=== PATIENT | female | born 1955 | race Caucasian/White ===

== ENCOUNTER → 2016-08-10 | Outpatient (CLI) | payer OTHER, MEDICARE ==
--- NOTE | 2016-08-10 11:54 | RAD ---
DATE: 08/10/2016. EXAM: DIGITAL SCREEN BILAT W/CAD. HISTORY: Routine mammographic screening. COMPARISON: 04/06/2015. This study was interpreted with the benefit of Computerized Aided Detection (CAD). FINDINGS: The breast parenchyma heterogeneously dense, which could reduce sensitivity of mammography. There is a mass within the left upper outer breast that measures 2.5 x 1.8 cm. It contains a few calcifications. There is a linear dense focus slightly superior to the nipple line on the left MLO view. This is likely from superimposition. On the right, scattered vascular calcifications appear benign. There is no suspicious finding. BI-RADS CATEGORY: 0 INCOMPLETE: NEEDS ADDITIONAL IMAGING EVALUATION AND/OR PRIOR MAMMOGRAMS FOR COMPARISON.. RECOMMENDED FOLLOW-UP: ADD ADDITIONAL IMAGING. Recommend spot compression and sonography to assess a mass in the left upper outer breast. Recommend spot compression of a new linear density superior to the left nipple which is likely superimposition. PQRS compliance statement: Patient information was entered into a reminder system with a target due date 08/10/2017 for the next mammogram. Mammography is a sensitive method for finding small breast cancers, but it does not detect them all and is not a substitute for careful clinical examination. A negative mammogram does not negate a clinically suspicious finding and should not result in delay in biopsying a clinically suspicious abnormality. "Our facility is accredited by the [employer] Mammography Program."
== END | disposition home or self-care (01) ==
LOC: MAMMO 09:58
PROVIDERS: ATTEND Internal Medicine
DX: Z12.31 Encounter for screening mammogram for malignant neoplasm of breast (principal)
CPT/HCPCS: G0202; 77067

== ENCOUNTER → 2016-08-11 | Outpatient (CLI) | payer OTHER, MEDICARE ==
--- NOTE | 2016-08-11 10:52 | RAD ---
DATE: 08/11/2016 EXAM: DIGITAL DIAGNOSTIC LT, BREAST LEFT HISTORY: Suspicious screening study COMPARISON: 08/10/2016, 03/27/2015 This study was interpreted with the benefit of Computerized Aided Detection (CAD). FINDINGS: Additional views of the left breast confirm the presence of a mass in the upper outer quadrant at approximately the 2:00 location. It measures 3 cm in greatest diameter. Its margins are lobulated. There are several punctate calcifications within this nodule as well as in the adjacent breast tissues. No additional left breast mass is seen. Left breast ultrasound, 08/11/2016: A targeted ultrasound exam of the upper quadrant left breast was performed. There is a predominantly cystic appearing lesion at this level measuring 2.7 cm in greatest diameter. It contains a septation. There appears to be some isoechoic thickening of its cortez. This probably represents a complex cyst cluster. Malignancy cannot be excluded. This corresponds in location to the mammographic abnormality. Incidental note was made of a tiny smooth 6 mm hypoechoic nodule at the 1:00 location located approximately 1 cm from the nipple. This has a relatively benign appearance and may represent a complicated cyst or fibroadenoma. IMPRESSION: 1. Complex cyst cluster at the 2:00 location in the left breast as described above. Ultrasound-guided biopsy is suggested for further evaluation. 2. Small benign-appearing nodule at the 1:00 location in the left breast seen only with ultrasound. Sonographic follow-up is suggested to establish stability. Note: The patient was notified of the recommendation for biopsy at the time of the exam. BI-RADS CATEGORY: 4 SUSPICIOUS ABNORMALITY- BIOPSY SHOULD BE CONSIDERED RECOMMENDED FOLLOW-UP: BIO BIOPSY RECOMMENDED PQRS compliance statement: Patient information was entered into a reminder system with a target due date for the next mammogram. Mammography is a sensitive method for finding small breast cancers, but it does not detect them all and is not a substitute for careful clinical examination. A negative mammogram does not negate a clinically suspicious finding and should not result in delay in biopsying a clinically suspicious abnormality. "Our facility is accredited by the [employer] Mammography [employer]."
== END | disposition home or self-care (01) ==
LOC: MAMMO 09:41
PROVIDERS: ATTEND Internal Medicine
DX: N63 Unspecified lump in breast (principal)
CPT/HCPCS: 76641; G0206; 77065

== ENCOUNTER → 2017-04-04 | Outpatient (CLI) | payer OTHER ==
--- NOTE | 2017-04-04 13:50 | RAD ---
DATE: 04/04/2017 EXAM: DIGITAL DIAGNOSTIC LT HISTORY: 6 month follow-up COMPARISON: Screening examination 08/10/2016. The history of left breast surgery for removal of a mass in September of this year has been provided This study was interpreted with the benefit of Computerized Aided Detection (CAD). FINDINGS: Breast Density: SCATTERED The breast parenchyma shows scattered fibroglandular densities. Breast parenchyma level B. Apart from removal of the mass in the upper outer aspect of the breast there has not been a significant change. A follow-up bilateral study, screening, is suggested in July, IMPRESSION: Benign findings left breast. Follow-up bilateral screening mammography suggested in July, BI-RADS CATEGORY: 2 BENIGN FINDING(S) RECOMMENDED FOLLOW-UP: 6M 6 MONTH FOLLOW-UP PQRS compliance statement: Patient information was entered into a reminder system with a target due date July for the next mammogram. Mammography is a sensitive method for finding small breast cancers, but it does not detect them all and is not a substitute for careful clinical examination. A negative mammogram does not negate a clinically suspicious finding and should not result in delay in biopsying a clinically suspicious abnormality. "Our facility is accredited by the [employer] Mammography Program."
== END | disposition home or self-care (01) ==
LOC: MAMMO 13:18
PROVIDERS: ATTEND Internal Medicine
DX: R92.8 Other abnormal and inconclusive findings on diagnostic imaging of breast (principal)
CPT/HCPCS: G0206; 77065

== ENCOUNTER → 2017-11-20 | Outpatient (CLI) | payer BC, OTHER | END | disposition home or self-care (01) | LOC: MAMMO 09:19 | DX: Z12.31 Encounter for screening mammogram for malignant neoplasm of breast (principal) | CPT/HCPCS: 77067 ==

== ENCOUNTER → 2018-03-07 | Outpatient (CLI) | payer BC, OTHER ==
--- NOTE | 2018-03-07 16:09 | KCIC ---
EXAM: Pelvic sonogram. HISTORY: Postmenopausal bleeding. TECHNIQUE: Transabdominal and transvaginal sonographic imaging of the pelvis was performed. COMPARISON: None. FINDINGS: The uterus measures 8.9 x 5.2 x 4.6 cm. The endometrial stripe measures 3.6 mm in thickness. The ovaries are normal in size and demonstrate normal blood flow. There is a 1.8 cm right ovarian cyst. There are nabothian cysts within the cervix. There is no pelvic free fluid. IMPRESSION: 1. 1.8 cm right ovarian cyst. Given the postmenopausal status the patient, sonographic follow-up can be performed to confirm stability. 2. Normal endometrial thickness for the postmenopausal status the patient. 3. Nabothian cysts within the cervix. Electronically signed by: Sharon Sun MD (03/07/2018 4:06 PM) [facility]
== END | disposition home or self-care (01) ==
LOC: KCIC US 15:00
PROVIDERS: ATTEND Internal Medicine
DX: N83.291 Other ovarian cyst, right side (principal); N88.8 Other specified noninflammatory disorders of cervix uteri
CPT/HCPCS: 76830; 76856

== ENCOUNTER 2018-03-21 09:19 | Day surgery (SDC) | payer BC, OTHER ==
[~2018-03-21] VITALS: Ht 160 cm; Wt 99.8 kg
[~2018-03-21 09:19] MED LIST: ALLO100T PO; ALPR0.5T PO; AMLO2.5T3 PO; ATOR40TA59 PO; CELE200C PO; CYCL5TAB PO; HYDR-963 PO; HYDROmorphone 2 MG/ML VIAL IV PRN; IV RINGERS,LACTATED 1000ML 1,000 ML IV SCH; LIDOCAINE 1% PF 2 ML VIAL. ID PRN; MORPHINE SULFATE 2 MG/ML VIAL. IV PRN; ONDANSETRON PF 4 MG/2 ML VIAL. IV PRN; PANT20TA2 PO; POTA10TA12 PO; PROCHLORPERAZINE 10 MG/2 ML VIAL. IV PRN; SERT50TA PO; TOPI50TA8 PO; TRIA1TAB3 PO; fentaNYL PF VIAL 100 MCG/2 ML VIAL IV PRN
[2018-03-21] MEDS ORDERED: miSOPROStol 200MCG TAB 200 MCG TABLET ONE (09:47)
[2018-03-21] MEDS ORDERED: OXYTOCIN 10 UNIT/ML VIAL. ONE (09:48)
[2018-03-21 09:50] LABS: BASO % 1 % (0-3); EOS # 0.1 x10^3/uL (0.0-0.7); EOS % 2 % (0-3); HEMATOCRIT 40.6 % (36.0-47.0); HEMOGLOBIN 13.9 g/dL (12.0-15.5); LYMPH # 2.1 x10^3/uL (1.0-4.8); LYMPH % 33 % (24-48); MEAN CORPUSCULAR HEMOGLOBIN 29 pg (25-35); MEAN CORPUSCULAR HGB CONC 34 g/dL (31-37); MEAN CORPUSCULAR VOLUME 85 fL (79-100); MONO # 0.5 x10^3/uL (0.0-1.1); MONO % 8 % (0-9); NEUT # 3.5 x10^3uL (1.8-7.7); NEUT % 56 % (31-73); PLATELET COUNT 269 x10^3/uL (140-400); RED BLOOD COUNT 4.77 x10^6/uL (3.50-5.40); WHITE BLOOD COUNT 6.3 x10^3/uL (4.0-11.0)
[2018-03-21] MEDS ORDERED: PROPOFOL 20 ML IV ONE (10:27)
[2018-03-21] MEDS ORDERED: ONDANSETRON PF 4 MG/2 ML VIAL. ONE (10:27)
[2018-03-21] MEDS ORDERED: DEXAMETHASONE SOD PHOS 20 MG/5 ML VIAL. ONE (10:27)
[2018-03-21] MEDS ORDERED: ROCURONIUM 100 MG/10 ML VIAL. ONE (10:42)
[2018-03-21] MEDS ORDERED: fentaNYL PF VIAL 100 MCG/2 ML VIAL ONE (10:42)
[2018-03-21] MEDS ORDERED: MIDAZOLAM HCL/PF 2 MG/2 ML VIAL. ONE (10:43)
[2018-03-21] MEDS ORDERED: PHENYLEPHRINE in 0.9% NACL PF 1 MG/10 ML SYRINGE. IV ONE (11:10)
[2018-03-21] MEDS ORDERED: ePHEDrine PF IN SALINE 50 MG/5 ML DISP.SYRIN IV ONE (11:20)
--- NOTE | 2018-03-21 11:29 | PDOC ---
GENERAL General: 62 yrs old female came in for Postmenopausal bleeding. VITAL SIGNS Vital Signs: Vital Signs Date Time Temp Pulse Resp B/P (MAP) Pulse Ox O2 Delivery O2 Flow Rate FiO2 03/21/18 09:37 97.7 68 20 97 97.7 03/21/18 09:37 140/82 Room Air ALLERGIES Allergies: Allergies Coded Allergies Type Severity Reaction Last Updated Verified No Known Drug Allergies 03/21/18 No MEDS Medications: Current Medications Medications (Trade) Dose Ordered Sig/Mac Start Time Stop Time Status Last Admin Dose Admin Cefazolin Sodium 50 ml @ 100 mls/hr 1X ONCE 03/21/18 06:00 03/21/18 06:29 DC 03/21/18 10:00 100 MLS/HR Dexamethasone Sodium Phosphate (Decadron) 20 mg STK-MED ONCE 03/21/18 10:27 03/21/18 10:29 DC Ephedrine Sulfate (ePHEDrine PF IN SALINE SYRINGE) 50 mg STK-MED ONCE 03/21/18 11:20 03/21/18 11:22 DC Fentanyl Citrate (Fentanyl 2ml Vial) 100 mcg STK-MED ONCE 03/21/18 10:42 03/21/18 10:44 DC Hydromorphone HCl (Dilaudid) 0.5 mg PRN Q10MIN PRN 03/21/18 07:00 03/22/18 06:59 Lidocaine HCl (Xylocaine-Mpf 1% 2ml Vial) 2 ml PRN 1X PRN 03/21/18 07:00 03/22/18 06:59 Midazolam HCl (Versed) 2 mg STK-MED ONCE 03/21/18 10:43 03/21/18 10:44 DC Misoprostol (Cytotec 200mcg Tab) 200 mcg STK-MED ONCE 03/21/18 09:47 03/21/18 10:49 DC Morphine Sulfate (Morphine Sulfate) 1 mg PRN Q10MIN PRN 03/21/18 07:00 03/22/18 06:59 Ondansetron HCl (Zofran) 4 mg STK-MED ONCE 03/21/18 10:27 03/21/18 10:29 DC Oxytocin (Pitocin) 10 unit STK-MED ONCE 03/21/18 09:48 03/21/18 10:49 DC Phenylephrine HCl (PHENYLEPHRINE in 0.9% NACL PF) 1 mg STK-MED ONCE 03/21/18 11:10 03/21/18 11:11 DC Prochlorperazine Edisylate (Compazine) 5 mg PACU PRN PRN 03/21/18 07:00 03/22/18 06:59 Propofol 20 ml @ As Directed STK-MED ONCE 03/21/18 10:27 03/21/18 10:29 DC Ringer's Solution 1,000 ml @ 30 mls/hr Q24H 03/21/18 07:00 03/21/18 18:59 03/21/18 07:00 30 MLS/HR Rocuronium [place] (Zemuron) 100 mg STK-MED ONCE 03/21/18 10:42 03/21/18 10:43 DC LAB Lab: Laboratory Tests Test 03/21/18 09:40 White Blood Count 6.3 x10^3/uL (4.0-11.0) Red Blood Count 4.77 x10^6/uL (3.50-5.40) Hemoglobin 13.9 g/dL (12.0-15.5) Hematocrit 40.6 % (36.0-47.0) Mean Corpuscular Volume 85 fL (79-100) Mean Corpuscular Hemoglobin 29 pg (25-35) Mean Corpuscular Hemoglobin Concent 34 g/dL (31-37) Red Cell Distribution Width 15.0 % (11.5-14.5) Platelet Count 269 x10^3/uL (140-400) Neutrophils (%) (Auto) 56 % (31-73) Lymphocytes (%) (Auto) 33 % (24-48) Monocytes (%) (Auto) 8 % (0-9) Eosinophils (%) (Auto) 2 % (0-3) Basophils (%) (Auto) 1 % (0-3) Neutrophils # (Auto) 3.5 x10^3uL (1.8-7.7) Lymphocytes # (Auto) 2.1 x10^3/uL (1.0-4.8) Monocytes # (Auto) 0.5 x10^3/uL (0.0-1.1) Eosinophils # (Auto) 0.1 x10^3/uL (0.0-0.7) Basophils # (Auto) 0.0 x10^3/uL (0.0-0.2) ASSESSMENT & PLAN A&P Under GA Diagnostic D&C done. EBL 5cc. Will see her in office in 2 weeks. DENEEN KAN MD Mar 21, 2018 11:29
[2018-03-21 12:30] VITALS: BP 110/68
--- NOTE | 2018-03-21 12:44 | OP ---
DATE OF SURGERY: 03/21/2018 PREOPERATIVE DIAGNOSIS: Postmenopausal bleeding. POSTOPERATIVE DIAGNOSIS: Postmenopausal bleeding. OPERATION PERFORMED: Diagnostic D and C. DESCRIPTION OF PROCEDURE: The patient was taken to the Operating Room. Under general anesthesia, she was placed in a dorsal lithotomy position. Perineum was prepped and draped in the usual manner. A weighted speculum was inserted in the posterior vaginal wall. Anterior lip of the cervix held with a tenaculum and uterine sound was used to measure the length of the uterine cavity, which appeared to be about 8 cm. The cervix was dilated first and medium sized curette was used to curet the endometrial cavity. All the curettings obtained were subjected for pathological examination. At the end of the curettage, speculum, tenaculum was removed. The patient was sent to the Recovery Room in good condition. No complications encountered at time of the procedure. Estimated blood loss was about 5 mL. Postoperative condition was stable. She will be followed in the office in 2 weeks for further care and treatment. DENEEN KAN MD DR: NBA/natalia JOB#: [id number] / [id number] FRANCIA Gillis MD
--- NOTE | 2018-03-22 14:11 | PATHOLOGY ---
[facility] Accession Number: [id number] . 01 Material submitted: . UTERINE CURETTINGS . 01 Clinician provided ICD-10: N95.0 . 01 Clinical history: . Postmenopausal bleeding . 02 Diagnosis: Uterine curettings: - Inactive/atrophic endometrium. (JPM:[place]; 03/22/2018) QMS/03/22/2018 . 02 Comment: Sections of the uterine curettings reveal blood and mucin containing segments of inactive/atrophic endometrium. There are also a few segments of lower uterine segment and squamous mucosa. There is no evidence of hyperplasia or malignancy. (JPM:[place]; 03/22/2018) . 02 Electronically signed: . Marshal Springer MD, Pathologist NPI- [id number] . 01 Gross description: . Received in formalin labeled "Adrianne Lopez, uterine curettings," is blood-tinged mucoid material containing small fragments of sidhu membranous tissue, measuring 2.7 x 1.5 x 0.2 cm in aggregate dimensions. The specimen is filtered and submitted entirely in cassette A1. (TSD; 03/21/2018) TOB/TOB . 02 Pathologist provided ICD-10: N85.8, N95.0 . 02 CPT . 801129 Specimen Comment: A courtesy copy of this report has been sent to Specimen Comment: [phone], . Specimen Comment: Report sent to / DR MOLINA Specimen Comment: A duplicate report has been generated due to demographic updates. Performed at: [address], [place], [place] [id number] MD Isauro High MD Phone: [phone] Performed at: 02 [facility] [address] [place], [place] [id number] MD Marshal Springer MD Phone: [phone]
== END 2018-03-21 12:30 | disposition home or self-care (01) ==
LOC: SURG 09:19
PROVIDERS: ATTEND Obstetrics & Gynecology
DX: N85.8 Other specified noninflammatory disorders of uterus (principal); I10 Essential (primary) hypertension; K21.9 Gastro-esophageal reflux disease without esophagitis; E66.9 Obesity, unspecified; M19.90 Unspecified osteoarthritis, unspecified site; F32.9 Major depressive disorder, single episode, unspecified; F41.9 Anxiety disorder, unspecified; Z79.899 Other long term (current) drug therapy; Z98.890 Other specified postprocedural states; E78.00 Pure hypercholesterolemia, unspecified; Z98.51 Tubal ligation status
CPT/HCPCS: 36415; 58120; 85025; A7015; J0690; J1100; J2250; J2370; J2405; J2704; J3010; J7120; 88305; J2590

== ENCOUNTER → 2018-04-17 | Outpatient (CLI) | payer BC, OTHER ==
[2018-03-21 12:30] VITALS: BP 110/68
[~2018-04-17] MED LIST changes: -HYDROmorphone 2 MG/ML VIAL IV PRN; -IV RINGERS,LACTATED 1000ML 1,000 ML IV SCH; -LIDOCAINE 1% PF 2 ML VIAL. ID PRN; -MORPHINE SULFATE 2 MG/ML VIAL. IV PRN; -ONDANSETRON PF 4 MG/2 ML VIAL. IV PRN; -PROCHLORPERAZINE 10 MG/2 ML VIAL. IV PRN; +TRAM-48 PO; -fentaNYL PF VIAL 100 MCG/2 ML VIAL IV PRN
--- NOTE | 2018-04-17 07:55 | RAD ---
Complete abdominal ultrasound 04/17/2018 INDICATION: Abnormal liver function tests. COMPARISON STUDY: None available. Discussion: Ultrasound evaluation of the abdomen was performed. Static images are submitted to PACS. The pancreas is not visualized. The aorta and IVC are nonvisualized. The liver is partially visualized with significant portions of the liver obscured. The liver is diffusely echogenic suggesting hepatic steatosis. The gallbladder is visualized without gross abnormality. Common bile duct is nonvisualized. The right kidney is normal in size measuring 12 cm in length. No evidence of hydronephrosis is identified. No evidence of nephrolithiasis is seen. The spleen is mildly enlarged measuring 13 cm longitudinally. Left kidney is normal in appearance measuring 12.1 cm in length. IMPRESSION: 1. Limited study 2. Probable hepatic steatosis 3. Mild splenomegaly Electronically signed by: Conrad Acuna MD (04/17/2018 7:52 AM) [facility]
== END | disposition home or self-care (01) ==
LOC: US 06:38
PROVIDERS: ATTEND Internal Medicine Gastroenterology
DX: R16.1 Splenomegaly, not elsewhere classified (principal)
CPT/HCPCS: 76700

== ENCOUNTER 2018-04-18 07:06 | Inpatient (IN) | payer BC, OTHER ==
[~2018-04-18] VITALS: Ht 162.6 cm; Wt 100.7 kg
[2018-04-18] VITALS (7 sets, daily range): BP systolic 91–108; BP diastolic 49–59
[~2018-04-18 07:06] MED LIST changes: +HYDROmorphone 2 MG/ML VIAL IV PRN; +IV RINGERS,LACTATED 1000ML 1,000 ML IV SCH; +LIDOCAINE 1% PF 2 ML VIAL. ID PRN; +MORPHINE SULFATE 2 MG/ML VIAL. IV PRN; +ONDANSETRON PF 4 MG/2 ML VIAL. IV PRN; +PROCHLORPERAZINE 10 MG/2 ML VIAL. IV PRN; -TRAM-48 PO; +fentaNYL PF VIAL 100 MCG/2 ML VIAL IV PRN
[2018-04-18] MEDS ORDERED: ROCURONIUM 50 MG/5 ML VIAL. ONE ×2 (07:55→10:02)
[2018-04-18] MEDS ORDERED: fentaNYL PF VIAL 250 MCG/5 ML VIAL ONE (07:55)
[2018-04-18] MEDS ORDERED: MIDAZOLAM HCL/PF 2 MG/2 ML VIAL. ONE (07:55)
[2018-04-18] MEDS ORDERED: DEXAMETHASONE SOD PHOS 20 MG/5 ML VIAL. ONE (07:57)
[2018-04-18] MEDS ORDERED: DESFLURANE > 120 MINUTES IH ONE (07:57)
[2018-04-18] MEDS ORDERED: PROPOFOL 20 ML IV ONE (07:57)
[2018-04-18] MEDS ORDERED: ONDANSETRON PF 4 MG/2 ML VIAL. ONE (07:57)
--- NOTE | 2018-04-18 07:57 | EKG ---
[facility] [address] [place] [address] Test Date: 2018-04-18 Test Time: 07:04:43 Pat Name: JAYLEN HUGHES Department: Room: [place] [address] Gender: F Talend Etl Developer: : [id number] Requested By: DENEEN KAN Order Number: [id number] Reading MD: Jesse Turcios Measurements Intervals [place] Rate: 63 P: 28 WI: 166 QRS: -11 QRSD: 102 T: 13 QT: 430 QTc: 443 Interpretive Statements SINUS RHYTHM LEFTWARD AXIS T ABNORMALITY IN ANTERIOR LEADS ABNORMAL ECG Electronically Signed On 04-20-2018 10:29:45 CDT by Jesse Turcios
--- NOTE | 2018-04-18 08:56 | RAD ---
CHEST PA LATERAL History: PRE OP , PT HAVING HYSTERECTOMY. Comparison: February 25, 2008 Findings: 2 views of the chest are submitted. There is no infiltrate, pneumothorax, or effusion. The cardiac silhouette is within normal limits in size. The trachea is in the midline. No acute osseous abnormality is identified. Impression: 1. There is no radiographic evidence of acute cardiopulmonary disease. Electronically signed by: Aniket Cleveland MD (04/18/2018 8:54 AM) [facility]
[2018-04-18] MEDS ORDERED: GELATIN SPONGE SIZE 100. ONE (09:35)
[2018-04-18] MEDS ORDERED: GELATIN SPONGE SIZE 12-7MM SPONGE. ONE (09:36)
[2018-04-18] MEDS ORDERED: GELATIN MUCOSAL POWDER. ONE (09:37)
[2018-04-18] MEDS ORDERED: GLYCOPYRROLATE 1 MG/5 ML VIAL. ONE (10:10)
[2018-04-18] MEDS ORDERED: NEOSTIGMINE METHYLSULFATE 5 MG/5 ML SYRINGE. ONE (10:10)
[2018-04-18] MEDS ORDERED: LIDOCAINE 2% PF Vial for OR 5 ML VIAL. ONE (10:54)
--- NOTE | 2018-04-18 11:05 | PDOC ---
GENERAL General: 62 yrs old lady admitted for Abdominal Hysterectomy and Bilateral Salpingo Oophorectomy. for Post Menopausal Bleeding. VITAL SIGNS Vital Signs: Vital Signs Date Time Temp Pulse Resp B/P (MAP) Pulse Ox O2 Delivery O2 Flow Rate FiO2 04/18/18 07:36 97.7 69 18 126/63 96 Room Air 97.7 ALLERGIES Allergies: Allergies Coded Allergies Type Severity Reaction Last Updated Verified No Known Drug Allergies 04/16/18 No MEDS Medications: Current Medications Medications (Trade) Dose Ordered Sig/Mac Start Time Stop Time Status Last Admin Dose Admin Cefazolin Sodium/ Dextrose 50 ml @ 100 mls/hr 1X PREOP PRN 04/18/18 06:00 04/18/18 18:00 04/18/18 09:00 100 MLS/HR Desflurane (Suprane) 90 ml STK-MED ONCE 04/18/18 07:57 04/18/18 07:58 DC Dexamethasone Sodium Phosphate (Decadron) 20 mg STK-MED ONCE 04/18/18 07:57 04/18/18 07:58 DC Fentanyl Citrate (Fentanyl 2ml Vial) 50 mcg PRN Q5MIN PRN 04/18/18 07:00 04/19/18 06:59 Fentanyl Citrate (Fentanyl 5ml Vial) 250 mcg STK-MED ONCE 04/18/18 07:55 04/18/18 07:56 DC Gelatin (Gelfoam Size 12-7mm) 1 each STK-MED ONCE 04/18/18 09:36 04/18/18 10:36 DC 04/18/18 10:42 1 EACH Gelatin (Gelfoam Size 100) 1 each STK-MED ONCE 04/18/18 09:35 04/18/18 10:35 DC Gelatin (Gelfoam Powder) 1 gm STK-MED ONCE 04/18/18 09:37 04/18/18 10:38 DC Glycopyrrolate (Robinul) 1 mg STK-MED ONCE 04/18/18 10:10 04/18/18 10:11 DC Hydromorphone HCl (Dilaudid) 0.5 mg PRN Q10MIN PRN 04/18/18 07:00 04/19/18 06:59 Lidocaine HCl (Lidocaine Pf 2% Vial) 5 ml STK-MED ONCE 04/18/18 10:54 04/18/18 10:55 DC Lidocaine HCl (Xylocaine-Mpf 1% 2ml Vial) 2 ml PRN 1X PRN 04/18/18 07:00 04/19/18 06:59 Midazolam HCl (Versed) 2 mg STK-MED ONCE 04/18/18 07:55 04/18/18 07:56 DC Morphine Sulfate (Morphine Sulfate) 1 mg PRN Q10MIN PRN 04/18/18 07:00 04/19/18 06:59 Neostigmine Methylsulfate (Neostigmine Methylsulfate) 5 mg STK-MED ONCE 04/18/18 10:10 04/18/18 10:11 DC Ondansetron HCl (Zofran) 4 mg STK-MED ONCE 04/18/18 07:57 04/18/18 07:58 DC Prochlorperazine Edisylate (Compazine) 5 mg PACU PRN PRN 04/18/18 07:00 04/19/18 06:59 Propofol 20 ml @ As Directed STK-MED ONCE 04/18/18 07:57 04/18/18 07:58 DC Ringer's Solution 1,000 ml @ 30 mls/hr Q24H 04/18/18 07:00 04/18/18 18:59 Rocuronium [place] (Zemuron) 50 mg STK-MED ONCE 04/18/18 10:02 04/18/18 10:03 DC ASSESSMENT & PLAN A&P Under GA Abdominal Hysterectomy and Bilateral Salpingo Oophorectomy done. EBL 300 cc. DENEEN KAN MD Apr 18, 2018 11:05
[2018-04-18] MEDS ORDERED: fentaNYL PF VIAL 100 MCG/2 ML VIAL ONE ×2 (11:33→12:16)
[2018-04-18] MEDS ORDERED: PROCHLORPERAZINE 10 MG/2 ML VIAL. ONE (11:33)
--- NOTE | 2018-04-18 11:57 | OP ---
DATE OF SURGERY: 04/18/2018 PREOPERATIVE DIAGNOSES: Post-menopausal bleeding, pelvic pain, hypertension. POSTOPERATIVE DIAGNOSES: Post-menopausal bleeding, pelvic pain, hypertension. OPERATION PERFORMED: Abdominal hysterectomy, bilateral salpingo-oophorectomy. DESCRIPTION OF PROCEDURE: The patient was taken to the operating room. Under general anesthesia, she was placed in a dorsal supine position. Jenkins catheter introduced in the bladder for continuous bladder drainage. Lower abdomen was prepped and draped in the usual manner. Pfannenstiel incision was made. Abdomen opened in layers. Visualization of pelvic structures revealed slightly enlarged uterus. Both the tubes and ovaries appeared normal with the previous tubal ligation scars and the round ligament on either side was clamped, ligated, cut and sutured with #1 chromic catgut sutures. The infundibulopelvic ligament on either side was clamped, ligated, cut and sutured with #1 chromic catgut sutures and the bladder flap peritoneum was dissected. Bladder was pushed way down the lower segment of the uterus. Uterine vessels on either side was clamped, ligated, cut and sutured with #1 chromic catgut sutures. After the complete reflection of bladder flap peritoneum, the uterosacral cardinal ligaments on either side was clamped, ligated, cut and sutured with #1 chromic catgut sutures. A stab wound incision was made below the cervix posteriorly and the incision was extended all around below the cervix and thus the uterus with the cervix, both the tubes and ovaries were removed. The vaginal cuff, anterior and posterior cuffs were brought in the midline and sutured together using 0 chromic catgut sutures. The angle of the vagina was anchored to the uterosacral cardinal ligaments on either side using [id number] 0 chromic catgut sutures and then the cuff was closed with intermittent 0 chromic catgut sutures. After this, there was no active bleeding or oozing. A small piece of Gelfoam sponge was placed below the bladder flap peritoneum. Reperitonealization was done with continuous 0 chromic catgut sutures and after this, the abdomen was closed in layers using continuous 0 chromic catgut sutures for the peritoneum, the fascia and 3-0 plain continuous sutures applied for subcutaneous tissue and 3-0 Vicryl subcutaneous sutures were placed, a pressure dressing was given. The patient was sent to the recovery room in good condition. No complications encountered at the time of the procedure. Estimated blood loss about 300 mL. Postoperative condition was stable. DENEEN KAN MD DR: NBA/natalia JOB#: [id number] / [id number] Meeta Harrington MD
[2018-04-18] MEDS: fentaNYL PF VIAL 100 MCG/2 ML VIAL IV PRN ×3 (12:13→12:37)
[2018-04-18] MEDS ORDERED: KETOROLAC 30 MG/ML VIAL. IV ONE (12:45)
[2018-04-18] MEDS ORDERED: MORPHINE SULFATE 2 MG/ML VIAL. ONE (12:51)
[2018-04-18] MEDS ORDERED: OPIUM/BELLADONNA 30/16.2MG SUPP.RECT. PR PRN (14:00)
[2018-04-18] MEDS ORDERED: ONDANSETRON PF 4 MG/2 ML VIAL. IV PRN (14:15)
[2018-04-18] MEDS: MORPHINE SULFATE 10 MG/ML VIAL. IV PRN ×2 (15:18→23:59)
[2018-04-18] MEDS: KETOROLAC 30 MG/ML VIAL. IV PRN (19:49)
[2018-04-18] MEDS: IV DEXTROSE 5%-LACT RINGERS 1,000 ML IV SCH (20:41)
[2018-04-19] MEDS: IV DEXTROSE 5%-LACT RINGERS 1,000 ML IV SCH (04:11)
[2018-04-19] MEDS: KETOROLAC 30 MG/ML VIAL. IV PRN ×2 (05:57→12:12)
[2018-04-19 06:47] VITALS: BP 83/53
--- NOTE | 2018-04-19 08:30 | PDOC ---
GENERAL General: Abdomen soft Explained to pt about surgery. VITAL SIGNS Vital Signs: Vital Signs Date Time Temp Pulse Resp B/P (MAP) Pulse Ox O2 Delivery O2 Flow Rate FiO2 04/19/18 06:47 97.9 59 18 83/53 (63) 97.9 04/18/18 23:11 96 Nasal Cannula 2.5 I & O I & O Intake and Output 04/19/18 07:00 Intake Total 3490 ml Output Total 1400 ml Balance 2090 ml Intake Oral 200 ml IV Total 2050 ml Other 1240 ml Output Urine Total 1050 ml Estimated Blood Loss 350 ml ALLERGIES Allergies: Allergies Coded Allergies Type Severity Reaction Last Updated Verified No Known Drug Allergies 04/16/18 No MEDS Medications: Current Medications Medications (Trade) Dose Ordered Sig/Mac Start Time Stop Time Status Last Admin Dose Admin Belladonna Alkaloids/Opium (B & O) 1 supp PRN Q12HR PRN 04/18/18 14:00 04/18/18 14:43 1 SUPP Cefazolin Sodium/ Dextrose 50 ml @ 100 mls/hr 1X PREOP PRN 04/18/18 06:00 04/18/18 18:00 DC 04/18/18 09:00 100 MLS/HR Desflurane (Suprane) 90 ml STK-MED ONCE 04/18/18 07:57 04/18/18 07:58 DC Dexamethasone Sodium Phosphate (Decadron) 20 mg STK-MED ONCE 04/18/18 07:57 04/18/18 07:58 DC Dextrose/Lactated Ringer's 1,000 ml @ 100 mls/hr Q10H 04/18/18 14:30 04/19/18 04:11 100 MLS/HR Fentanyl Citrate (Fentanyl 2ml Vial) 100 mcg STK-MED ONCE 04/18/18 12:16 04/18/18 12:17 DC Fentanyl Citrate (Fentanyl 5ml Vial) 250 mcg STK-MED ONCE 04/18/18 07:55 04/18/18 07:56 DC Gelatin (Gelfoam Size 12-7mm) 1 each STK-MED ONCE 04/18/18 09:36 04/18/18 10:36 DC 04/18/18 10:42 1 EACH Gelatin (Gelfoam Size 100) 1 each STK-MED ONCE 04/18/18 09:35 04/18/18 10:35 DC Gelatin (Gelfoam Powder) 1 gm STK-MED ONCE 04/18/18 09:37 04/18/18 10:38 DC Glycopyrrolate (Robinul) 1 mg STK-MED ONCE 04/18/18 10:10 04/18/18 10:11 DC Hydromorphone HCl (Dilaudid) 0.5 mg PRN Q10MIN PRN 04/18/18 07:00 04/19/18 06:59 DC Ketorolac Tromethamine (Toradol 30mg Vial) 30 mg PRN Q6HRS PRN 04/18/18 19:30 04/23/18 19:29 04/19/18 05:57 30 MG Lidocaine HCl (Lidocaine Pf 2% Vial) 5 ml STK-MED ONCE 04/18/18 10:54 04/18/18 10:55 DC Lidocaine HCl (Xylocaine-Mpf 1% 2ml Vial) 2 ml PRN 1X PRN 04/18/18 07:00 04/19/18 06:59 DC Midazolam HCl (Versed) 2 mg STK-MED ONCE 04/18/18 07:55 04/18/18 07:56 DC Morphine Sulfate (Morphine Sulfate) 10 mg PRN Q4HRS PRN 04/18/18 14:00 04/18/18 23:59 10 MG Neostigmine Methylsulfate (Neostigmine Methylsulfate) 5 mg STK-MED ONCE 04/18/18 10:10 04/18/18 10:11 DC Ondansetron HCl (Zofran) 4 mg PRN Q6HRS PRN 04/18/18 14:15 Prochlorperazine Edisylate (Compazine) 10 mg STK-MED ONCE 04/18/18 11:33 04/18/18 11:34 DC Propofol 20 ml @ As Directed STK-MED ONCE 04/18/18 07:57 04/18/18 07:58 DC Ringer's Solution 1,000 ml @ 30 mls/hr Q24H 04/18/18 07:00 04/18/18 18:59 DC 04/18/18 08:15 30 MLS/HR Rocuronium [place] (Zemuron) 50 mg STK-MED ONCE 04/18/18 10:02 04/18/18 10:03 DC ASSESSMENT & PLAN A&P Vital signs stable Abdomen soft. Not much vaginal bleeding. DENEEN KAN MD Apr 19, 2018 08:30
[2018-04-19 11:15] VITALS: BP 99/54
[2018-04-19] MEDS ORDERED: traMADol 50 MG TABLET PO PRN (12:45)
[2018-04-19 16:20] VITALS: BP 98/57
[2018-04-19 20:24] VITALS: BP 96/57
[2018-04-19] MEDS ORDERED: KETOROLAC 60 MG/2 ML INJ. IM PRN (20:30)
[2018-04-19] MEDS: IBUPROFEN 400 MG TABLET. PO PRN (20:49)
[2018-04-19] MEDS: traMADol 50 MG TABLET PO PRN (22:42)
[2018-04-20] MEDS: IBUPROFEN 400 MG TABLET. PO PRN ×3 (02:55→23:59)
[2018-04-20 03:45] VITALS: BP 91/60
[2018-04-20] MEDS: traMADol 50 MG TABLET PO PRN ×3 (04:33→19:30)
--- NOTE | 2018-04-20 09:09 | PDOC ---
GENERAL General: Vital signs stable Patient feeling much better VITAL SIGNS Vital Signs: Vital Signs Date Time Temp Pulse Resp B/P (MAP) Pulse Ox O2 Delivery O2 Flow Rate FiO2 04/20/18 04:33 18 04/20/18 03:45 98.0 59 91/60 (70) 91 Room Air 98.0 I & O I & O Intake and Output 04/20/18 07:00 Intake Total 800 ml Output Total 450 ml Balance 350 ml Intake Oral 800 ml Output Urine Total 450 ml ALLERGIES Allergies: Allergies Coded Allergies Type Severity Reaction Last Updated Verified No Known Drug Allergies 04/16/18 No MEDS Medications: Current Medications Medications (Trade) Dose Ordered Sig/Mac Start Time Stop Time Status Last Admin Dose Admin Belladonna Alkaloids/Opium (B & O) 1 supp PRN Q12HR PRN 04/18/18 14:00 04/18/18 14:43 1 SUPP Cefazolin Sodium/ Dextrose 50 ml @ 100 mls/hr 1X PREOP PRN 04/18/18 06:00 04/18/18 18:00 DC 04/18/18 09:00 100 MLS/HR Desflurane (Suprane) 90 ml STK-MED ONCE 04/18/18 07:57 04/18/18 07:58 DC Dexamethasone Sodium Phosphate (Decadron) 20 mg STK-MED ONCE 04/18/18 07:57 04/18/18 07:58 DC Dextrose/Lactated Ringer's 1,000 ml @ 100 mls/hr Q10H 04/18/18 14:30 04/19/18 20:29 DC 04/19/18 04:11 100 MLS/HR Fentanyl Citrate (Fentanyl 2ml Vial) 100 mcg STK-MED ONCE 04/18/18 12:16 04/18/18 12:17 DC Fentanyl Citrate (Fentanyl 5ml Vial) 250 mcg STK-MED ONCE 04/18/18 07:55 04/18/18 07:56 DC Gelatin (Gelfoam Size 12-7mm) 1 each STK-MED ONCE 04/18/18 09:36 04/18/18 10:36 DC 04/18/18 10:42 1 EACH Gelatin (Gelfoam Size 100) 1 each STK-MED ONCE 04/18/18 09:35 04/18/18 10:35 DC Gelatin (Gelfoam Powder) 1 gm STK-MED ONCE 04/18/18 09:37 04/18/18 10:38 DC Glycopyrrolate (Robinul) 1 mg STK-MED ONCE 04/18/18 10:10 04/18/18 10:11 DC Hydromorphone HCl (Dilaudid) 0.5 mg PRN Q10MIN PRN 04/18/18 07:00 04/19/18 06:59 DC Ibuprofen (Motrin) 800 mg PRN Q6HRS PRN 04/19/18 20:45 04/20/18 02:55 800 MG Ketorolac Tromethamine (Toradol 30mg Vial) 30 mg PRN Q6HRS PRN 04/18/18 19:30 04/19/18 20:29 DC 04/19/18 12:12 30 MG Ketorolac Tromethamine (Toradol Im) 30 mg PRN Q6HRS PRN 04/19/18 20:30 04/24/18 20:29 Lidocaine HCl (Lidocaine Pf 2% Vial) 5 ml STK-MED ONCE 04/18/18 10:54 04/18/18 10:55 DC Lidocaine HCl (Xylocaine-Mpf 1% 2ml Vial) 2 ml PRN 1X PRN 04/18/18 07:00 04/19/18 06:59 DC Midazolam HCl (Versed) 2 mg STK-MED ONCE 04/18/18 07:55 04/18/18 07:56 DC Morphine Sulfate (Morphine Sulfate) 10 mg PRN Q4HRS PRN 04/18/18 14:00 04/18/18 23:59 10 MG Neostigmine Methylsulfate (Neostigmine Methylsulfate) 5 mg STK-MED ONCE 04/18/18 10:10 04/18/18 10:11 DC Ondansetron HCl (Zofran) 4 mg PRN Q6HRS PRN 04/18/18 14:15 04/19/18 20:29 DC Prochlorperazine Edisylate (Compazine) 10 mg STK-MED ONCE 04/18/18 11:33 04/18/18 11:34 DC Propofol 20 ml @ As Directed STK-MED ONCE 04/18/18 07:57 04/18/18 07:58 DC Ringer's Solution 1,000 ml @ 30 mls/hr Q24H 04/18/18 07:00 04/18/18 18:59 DC 04/18/18 08:15 30 MLS/HR Rocuronium [place] (Zemuron) 50 mg STK-MED ONCE 04/18/18 10:02 04/18/18 10:03 DC Tramadol HCl (Ultram) 50 mg PRN Q6HRS PRN 04/19/18 22:15 04/20/18 04:33 50 MG ASSESSMENT & PLAN A&P Abdomen soft Wound healing ok. Plan dismissal in am. DENEEN KAN MD Apr 20, 2018 09:09
[2018-04-20 11:25] VITALS: BP 99/58
[2018-04-20] MEDS ORDERED: KETOROLAC 30 MG/ML VIAL. IM PRN (12:45)
[2018-04-20] MEDS ORDERED: SIMETHICONE 80 MG TAB.CHEW PO PRN (16:45)
[2018-04-20 17:05] VITALS: BP 98/57
--- NOTE | 2018-04-20 17:10 | PATHOLOGY ---
[facility] Accession Number: [id number] . 01 Material submitted: . PART A: RIGHT FALLOPIAN TUBE AND RIGHT OVARY PART B: UTERUS, CERVIX, LEFT FALLOPIAN TUBE AND LEFT OVARY . 01 Clinical history: . Postmenopausal bleeding . 02 Diagnosis: A. Ovary and fallopian tube, right, salpingooophorectomy: - Fallopian tube with simple paratubal cyst. - Ovary with simple cyst, 1.2 cm. . B. Uterus, left ovary and fallopian tube, hysterectomy and left salpingoophorectomy: - Cervix with mild chronic inflammation, squamous metaplasia, and Nabothian cysts. - Proliferative phase endometrium. - Myometrium with leiomyomata, up to 1.1 cm. - Subserosal leiomyoma, 0.5 cm, with coarse calcification. - Adenomyosis of myometrium. - Left ovary and fallopian tube with no pathologic diagnosis. (SKM:[place]; 04/20/2018) QMS/04/20/2018 . 02 Electronically signed: . Sky Taylor MD, Pathologist NPI- [id number] . 01 Gross description: . A. The specimen is received in formalin, labeled "Adrianne Lopez, right fallopian tube and right ovary". Received is a 9 g clinically right adnexal specimen consisting of a fimbria fallopian tube measuring 3.27 m in length by 0.7 cm in diameter attached to a 2.4 x 1.3 x 1.3 cm ovary. The serosal surface of the fallopian tube displays multiple attached paratubal cysts ranging in size from 0.5 to 1.0 cm filled with clear fluid. Sectioning reveals a patent lumen, and the fallopian tube appears otherwise grossly unremarkable. Sectioning through the ovary reveals a unilocular cystic structure measuring 1.2 cm filled with blood-tinged fluid. The remaining cut surfaces display pale sidhu, normal ovarian stroma. The specimen is submitted representatively in cassettes A1 and A2. . B. The specimen is received in formalin, labeled "Adrianne Lopez, uterus, cervix, left fallopian tube, left ovary". Received is an 89 g, 8.7 x 5.3 x 3.4 cm uterus with attached cervix and detached adnexa weighing 5 g. The uterine serosa is light sidhu in appearance displaying to serosal nodules measuring 0.3 and 0.9 cm. The 0.5 cm cervical os is surrounded by pale sidhu to red-sidhu, smooth ectocervical mucosa. The uterus is oriented using the peritoneal reflection and the anterior paracervical margin is inked black. The uterus is opened laterally to reveal a pale sidhu endocervical canal measuring 3.0 cm in length. The endometrial cavity is triangular measuring 4.6 cm in length by 3.8 cm in width. The endometrium is pale sidhu to pink-sidhu, glistening in appearance and measures 0.1 cm in thickness. Serial sectioning reveals a sidhu-pink, trabeculated myometrium measuring up to 1.8 cm in thickness displaying evidence of mild adenomyosis, as well as two intramural fibroids measuring 0.6 and 1.1 cm in maximum dimensions. . The detached adnexa consists of a fimbriated fallopian tube measuring 2.0 cm in length by 0.5 cm in diameter attached to a 1.9 x 1.9 x 1.2 cm ovary. Sectioning through the fallopian tube reveals a patent lumen. The ovary displays an attached cystic structure measuring 0.6 cm filled with clear fluid. Sectioning through the ovary reveals pale sidhu, normal ovarian stroma. The specimen is submitted representatively as follows: . B1 12:00 cervix B2 6:00 cervix B3 serosal nodules B4 anterior endomyometrium B5 posterior endomyometrium B6 intramural fibroids B7 bank representative sections of adnexa. (CAA; 04/19/2018) QAC/QAC . 02 Pathologist provided ICD-10: N83.8, N83.291, N72, D25.2, N80.0 . 02 CPT . 698577 Specimen Comment: A courtesy copy of this report has been sent to Specimen Comment: [phone], . Specimen Comment: Report sent to / DR MOLINA Specimen Comment: A duplicate report has been generated due to demographic updates. Performed at: 01 [facility] [id number] [address], [place] [id number] MD Isauro High MD Phone: [phone] Performed at: [address] [id number] MD Marshal Springer MD Phone: [phone]
[2018-04-20] MEDS ORDERED: MAGNESIUM HYDROXIDE 2,400 MG/30 ML ORAL.SUSP. PO PRN (17:15)
[2018-04-20 21:55] VITALS: BP 106/65
[2018-04-21 05:05] VITALS: BP 100/65
[2018-04-21] MEDS: traMADol 50 MG TABLET PO PRN ×2 (05:45→13:20)
[2018-04-21] MEDS: IBUPROFEN 400 MG TABLET. PO PRN (09:46)
[2018-04-21 10:20] VITALS: BP 99/61
--- NOTE | 2018-04-21 10:30 | PDOC ---
GENERAL General: Patient likes to go home today. Wants pain pills VITAL SIGNS Vital Signs: Vital Signs Date Time Temp Pulse Resp B/P (MAP) Pulse Ox O2 Delivery O2 Flow Rate FiO2 04/21/18 06:45 18 Room Air 04/21/18 05:05 97.6 69 100/65 (77) 95 97.6 I & O I & O Intake and Output 04/21/18 07:00 Intake Total 1020 ml Balance 1020 ml Intake Oral 1020 ml # Voids 7 ALLERGIES Allergies: Allergies Coded Allergies Type Severity Reaction Last Updated Verified No Known Drug Allergies 04/16/18 No MEDS Medications: Current Medications Medications (Trade) Dose Ordered Sig/Mac Start Time Stop Time Status Last Admin Dose Admin Belladonna Alkaloids/Opium (B & O) 1 supp PRN Q12HR PRN 04/18/18 14:00 04/18/18 14:43 1 SUPP Cefazolin Sodium/ Dextrose 50 ml @ 100 mls/hr 1X PREOP PRN 04/18/18 06:00 04/18/18 18:00 DC 04/18/18 09:00 100 MLS/HR Desflurane (Suprane) 90 ml STK-MED ONCE 04/18/18 07:57 04/18/18 07:58 DC Dexamethasone Sodium Phosphate (Decadron) 20 mg STK-MED ONCE 04/18/18 07:57 04/18/18 07:58 DC Dextrose/Lactated Ringer's 1,000 ml @ 100 mls/hr Q10H 04/18/18 14:30 04/19/18 20:29 DC 04/19/18 04:11 100 MLS/HR Fentanyl Citrate (Fentanyl 2ml Vial) 100 mcg STK-MED ONCE 04/18/18 12:16 04/18/18 12:17 DC Fentanyl Citrate (Fentanyl 5ml Vial) 250 mcg STK-MED ONCE 04/18/18 07:55 04/18/18 07:56 DC Gelatin (Gelfoam Size 12-7mm) 1 each STK-MED ONCE 04/18/18 09:36 04/18/18 10:36 DC 04/18/18 10:42 1 EACH Gelatin (Gelfoam Size 100) 1 each STK-MED ONCE 04/18/18 09:35 04/18/18 10:35 DC Gelatin (Gelfoam Powder) 1 gm STK-MED ONCE 04/18/18 09:37 04/18/18 10:38 DC Glycopyrrolate (Robinul) 1 mg STK-MED ONCE 04/18/18 10:10 04/18/18 10:11 DC Hydromorphone HCl (Dilaudid) 0.5 mg PRN Q10MIN PRN 04/18/18 07:00 04/19/18 06:59 DC Ibuprofen (Motrin) 800 mg PRN Q6HRS PRN 04/19/18 20:45 04/21/18 09:46 800 MG Ketorolac Tromethamine (Toradol 30mg Vial) 30 mg PRN Q6HRS PRN 04/20/18 12:45 04/24/18 20:29 Ketorolac Tromethamine (Toradol Im) 30 mg PRN Q6HRS PRN 04/19/18 20:30 04/20/18 12:45 DC Lidocaine HCl (Lidocaine Pf 2% Vial) 5 ml STK-MED ONCE 04/18/18 10:54 04/18/18 10:55 DC Lidocaine HCl (Xylocaine-Mpf 1% 2ml Vial) 2 ml PRN 1X PRN 04/18/18 07:00 04/19/18 06:59 DC Magnesium Hydroxide (Milk Of Magnesia) 2,400 mg PRN DAILY PRN 04/20/18 17:15 04/20/18 19:30 2,400 MG Midazolam HCl (Versed) 2 mg STK-MED ONCE 04/18/18 07:55 04/18/18 07:56 DC Morphine Sulfate (Morphine Sulfate) 10 mg PRN Q4HRS PRN 04/18/18 14:00 04/20/18 17:12 DC 04/18/18 23:59 10 MG Neostigmine Methylsulfate (Neostigmine Methylsulfate) 5 mg STK-MED ONCE 04/18/18 10:10 04/18/18 10:11 DC Ondansetron HCl (Zofran) 4 mg PRN Q6HRS PRN 04/18/18 14:15 04/19/18 20:29 DC Prochlorperazine Edisylate (Compazine) 10 mg STK-MED ONCE 04/18/18 11:33 04/18/18 11:34 DC Propofol 20 ml @ As Directed STK-MED ONCE 04/18/18 07:57 04/18/18 07:58 DC Ringer's Solution 1,000 ml @ 30 mls/hr Q24H 04/18/18 07:00 04/18/18 18:59 DC 04/18/18 08:15 30 MLS/HR Rocuronium [place] (Zemuron) 50 mg STK-MED ONCE 04/18/18 10:02 04/18/18 10:03 DC Simethicone (Gas-X) 80 mg PRN AFTMEALHC PRN 04/20/18 16:45 Tramadol HCl (Ultram) 50 mg PRN Q6HRS PRN 04/19/18 22:15 04/21/18 05:45 50 MG ASSESSMENT & PLAN A&P Patient to go home today. No fever. Feeling good. Will see her in 2 weeks in office. DENEEN KAN MD Apr 21, 2018 10:30
[2018-04-21] MEDS ORDERED: TRAM-48 PO (12:14)
[2018-04-21 14:00] VITALS: BP 96/59
--- NOTE | 2018-04-23 08:51 | PREOP HP ---
DATE OF SERVICE: 04/18/2018 CHIEF COMPLAINT AND HISTORY OF PRESENT ILLNESS: This patient is a 62-year-old female who is a 2, para 2, having vaginal bleeding, and she has attained menopause a few years ago. She is a patient of Dr. Alcazar, referred for postmenopausal bleeding and she had been on Prempro for 5 years and she also has high blood pressure. No history of any diabetes. She is off the estrogen at this present time and she did have a D and C done for postmenopausal bleeding on 03/21/2018, which shows benign endometrium. At the present time, she is scheduled for hysterectomy and bilateral salpingo-oophorectomy. ALLERGIES: None known. SOCIAL HISTORY: Past history reveals no history of any smoking, not alcoholic. FAMILY HISTORY: She has 3 brothers and 1 sister. REVIEW OF SYSTEMS: Essentially negative, except 2 back surgeries she has had, also 2 knee replacements, tonsillectomy, and tubal ligation. PHYSICAL EXAMINATION: VITAL SIGNS: Reveals she weighs about 230 pounds. Her blood pressure is stable with the blood pressure medicine, 120/80. HEAD, EYES, EARS, NOSE AND THROAT EXAMINATION: Within normal limits. LUNGS: Clear. HEART: Sounds regular sinus rhythm. BREASTS: No masses are palpable at this time. ABDOMEN: Feels soft. PELVIC EXAMINATION: Shows external genitalia being normal. Cervical os is closed and slight bleeding noted. On bimanual exam, uterus feels enlarged. No adnexal masses are palpable at this time. EXTREMITIES: No edema of feet. IMPRESSION: DICTATION ENDS HERE DENEEN KAN MD DR: NBA/natalia JOB#: [id number] / [id number]
== END 2018-04-21 14:30 | disposition home or self-care (01) | DRG 743 ==
LOC: OPSVCIP 07:06 → 3 NORTH 12:52
PROVIDERS: ADMIT Obstetrics & Gynecology; ATTEND Obstetrics & Gynecology
PROC: 0UT70ZZ Resection of Bilateral Fallopian Tubes, Open Approach (ICD-10-PCS; 2018-04-18)
PROC: 0UT20ZZ Resection of Bilateral Ovaries, Open Approach (ICD-10-PCS; 2018-04-18)
PROC: 0UT90ZZ Resection of Uterus, Open Approach (ICD-10-PCS; principal; 2018-04-18 09:00)
DX: N95.0 Postmenopausal bleeding (principal); Z96.653 Presence of artificial knee joint, bilateral; I10 Essential (primary) hypertension; N85.2 Hypertrophy of uterus; Z98.51 Tubal ligation status
CPT/HCPCS: 36415; 71046; 76700; 86850; 86900; 86901; 88307; 93005; A7015; J0690; J0780; J1100; J1885; J2001; J2250; J2270; J2405; J2704; J2710; J3010; J3490; J7120; A4461

== ENCOUNTER 2018-04-30 08:38 | Outpatient (CLI) | payer BC, OTHER ==
[2018-04-30] VITALS (10 sets, daily range): BP systolic 92–119; BP diastolic 54–76
[~2018-04-30] VITALS: Ht 162.6 cm; Wt 96.2 kg
[~2018-04-30 08:38] MED LIST changes: -HYDROmorphone 2 MG/ML VIAL IV PRN; -IV RINGERS,LACTATED 1000ML 1,000 ML IV SCH; -LIDOCAINE 1% PF 2 ML VIAL. ID PRN; -MORPHINE SULFATE 2 MG/ML VIAL. IV PRN; -ONDANSETRON PF 4 MG/2 ML VIAL. IV PRN; -PROCHLORPERAZINE 10 MG/2 ML VIAL. IV PRN; +TRAM-48 PO; -fentaNYL PF VIAL 100 MCG/2 ML VIAL IV PRN
[2018-04-30 09:05] LABS: BASO # 0.1 x10^3/uL (0.0-0.2); BASO % 1 % (0-3); EOS # 0.1 x10^3/uL (0.0-0.7); EOS % 2 % (0-3); HEMOGLOBIN 12.1 g/dL (12.0-15.5); LYMPH % 27 % (24-48); MEAN CORPUSCULAR HEMOGLOBIN 29 pg (25-35); MEAN CORPUSCULAR HGB CONC 35 g/dL (31-37); MEAN CORPUSCULAR VOLUME 85 fL (79-100); MONO # 0.6 x10^3/uL (0.0-1.1); MONO % 8 % (0-9); NEUT # 4.5 x10^3uL (1.8-7.7); NEUT % 62 % (31-73); PLATELET COUNT 364 x10^3/uL (140-400); RED BLOOD COUNT 4.12 x10^6/uL (3.50-5.40); RED CELL DISTRIBUTION WIDTH 15.2 % (11.5-14.5); WHITE BLOOD COUNT 7.2 x10^3/uL (4.0-11.0)
[2018-04-30] MEDS ORDERED: LIDOCAINE WITH 8.4% SOD BICARB 3 ML DISP.SYRIN. ONE (09:25)
[2018-04-30 09:30] LABS: PROTHROMBIN TIME PATIENT 12.8 SEC (11.7-14.0)
[2018-04-30] MEDS ORDERED: GELATIN SPONGE SIZE 12-7MM SPONGE. ONE (09:40)
[2018-04-30] MEDS ORDERED: MIDAZOLAM HCL/PF 2 MG/2 ML VIAL. ONE (09:40)
[2018-04-30] MEDS ORDERED: fentaNYL PF VIAL 100 MCG/2 ML VIAL ONE (09:40)
[2018-04-30] MEDS ORDERED: LIDOCAINE WITH 8.4% SOD BICARB 3 ML DISP.SYRIN. IJ ONE (10:00)
[2018-04-30] MEDS ORDERED: fentaNYL PF VIAL 100 MCG/2 ML VIAL IV ONE (10:00)
[2018-04-30] MEDS ORDERED: MIDAZOLAM HCL/PF 2 MG/2 ML VIAL. IV ONE (10:00)
--- NOTE | 2018-04-30 14:56 | RAD ---
CT-guided liver biopsy 04/30/2018 Indication: Elevated liver enzymes Discussion: The risks and benefits of the procedure were discussed the patient. Informed consent was obtained. Timeout procedure was performed. CT imaging was performed to delineate hepatic anatomy. Inferior right liver was chosen for biopsy. 1% lidocaine without epinephrine was administered for local anesthesia to the skin and subcutaneous tissues. Under intermittent CT guidance 17-gauge needle was advanced into the right hepatic lobe. 2 x 18-gauge core biopsy samples were obtained. Gelfoam embolization of the biopsy tract was performed as the needle was removed. Manual pressure was held. Sterile dressings were applied. Repeat imaging demonstrates no significant hemorrhage or other complications. The patient was transferred to the recovery unit in stable condition. The procedures performed under conscious sedation including continuous cardiopulmonary monitoring via a dedicated sedation nurse. [id number] sedation time: 30 minutes. Impression: CT-guided liver biopsy. PQRS Compliance Statement: One or more of the following individualized dose reduction techniques were utilized for this examination: 1. Automated exposure control 2. Adjustment of the mA and/or kV according to patient size 3. Use of iterative reconstruction technique
--- NOTE | 2018-05-01 14:09 | PATHOLOGY ---
[facility] Accession Number: [id number] . 01 Material submitted: . LIVER BIOPSY . 01 Clinical history: . Liver labs elevated . 02 Diagnosis: Liver, core needle biopsy: - Benign liver parenchyma with extensive fatty change (please see comment). . (SKM:mml; 05/01/18) [facility]/05/01/2018 . 02 Comment: This case will be sent to the [facility] for further evaluation. Their findings will be issued in an addendum report. . (SKM:mml; 05/01/18) . 02 Electronically signed: . Sky Taylor MD, Pathologist NPI- [id number] . 01 Gross description: . Received in formalin labeled "John Adrianne, liver BX," are 2 distinct needle cores of sidhu soft tissue measuring 1.3 and 1.4 cm in length and less than 0.1 cm each in diameter. The specimen is entirely submitted in cassette A1. (TSD; 04/30/2018) TOB/TOB . 02 Pathologist provided ICD-10: K76.0 . 02 CPT . 290612 Specimen Comment: A courtesy copy of this report has been sent to Specimen Comment: [phone], , . Specimen Comment: Report sent to ,DR SQUIRES / DR MOLINA Specimen Comment: A duplicate report has been generated due to demographic updates. Performed at: 01 [facility] [address], [place] [id number] MD Isauro High MD Phone: [phone] Performed at: 02 [facility] [id number] MD Marshal Springer MD Phone: [phone]
== END 2018-04-30 12:00 | disposition home or self-care (01) ==
LOC: INTRAD 08:38
PROVIDERS: ATTEND Internal Medicine Gastroenterology
DX: K76.0 Fatty (change of) liver, not elsewhere classified (principal); I10 Essential (primary) hypertension; E78.5 Hyperlipidemia, unspecified; E03.9 Hypothyroidism, unspecified; M10.9 Gout, unspecified; F32.9 Major depressive disorder, single episode, unspecified; Z79.899 Other long term (current) drug therapy
CPT/HCPCS: 36415; 47000; 77012; 85025; 85610; 85730; 99152; 99153; J2250; J3010

== ENCOUNTER → 2018-05-03 | Outpatient (CLI) | payer BC, OTHER ==
[2018-04-30 12:01] VITALS: BP 108/62
--- NOTE | 2018-05-03 15:04 | RAD ---
Complete abdominal ultrasound History: Abdominal pain, postop liver biopsy April 30. COMPARISON: April 17, 2018. Findings: Exam is limited due to body habitus. Aorta: Poorly visualized. Inferior vena cava: Poorly visualized. Pancreas: Poorly visualized. Liver: Diffusely echogenic, compatible with fatty infiltration. This results in limited penetration of the liver, difficult to evaluate for lesion. Gallbladder: No definite gallstone or gallbladder wall thickening. Suboptimal visualization. Bile ducts: No obvious dilatation but the common bile duct is not clearly visualized. Right kidney: 11.8 cm length. No evidence of hydronephrosis. Left kidney: 13.1 cm length. No evidence of hydronephrosis. Spleen: Mild enlarged, 13 cm. No abnormal fluid collections or free fluid is identified in the scanned regions. Impression: 1. Limited examination. 2. Findings compatible with hepatic steatosis. 3. Mild splenomegaly. Electronically signed by: Jean Gaston MD (05/03/2018 3:01 PM) [facility]-[id number]
== END | disposition home or self-care (01) ==
LOC: US 14:13
PROVIDERS: ATTEND Internal Medicine
DX: K76.0 Fatty (change of) liver, not elsewhere classified (principal); R16.1 Splenomegaly, not elsewhere classified
CPT/HCPCS: 76700

== ENCOUNTER → 2019-02-28 | Outpatient (CLI) | payer BC, OTHER ==
[2018-04-30 12:01] VITALS: BP 108/62
[~2019-02-28] MED LIST changes: -AMLO2.5T3 PO; +AMLO2.5T5 PO; +HYDR-3135 PO; -HYDR-963 PO
--- NOTE | 2019-03-01 19:26 | RAD ---
DATE: 02/28/2019 EXAM: MAMMO ANNELISE SCREENING BILATERAL HISTORY: Routine screening. Left upper outer breast biopsy in 2017. COMPARISON: 12/11/2012 08/10/2016, 11/20/2017 mammographic exams This study was interpreted with the benefit of Computerized Aided Detection (CAD). Breast Density: SCATTERED The breast parenchyma shows scattered fibroglandular densities. Breast parenchyma level B. FINDINGS: Left upper-outer breast region of fat necrosis at the site of previous biopsy is noted. No suspicious mass. Multiple small masses bilaterally are stable. No suspicious calcification. No suspicious distortion. IMPRESSION: Stable other than left upper outer breast fat necrosis. Benign findings. BI-RADS CATEGORY: 2 BENIGN FINDING(S) RECOMMENDED FOLLOW-UP: 12M 12 MONTH FOLLOW-UP PQRS compliance statement: Patient information was entered into a reminder system with a target due date in one year for the next mammogram. Mammography is a sensitive method for finding small breast cancers, but it does not detect them all and is not a substitute for careful clinical examination. A negative mammogram does not negate a clinically suspicious finding and should not result in delay in biopsying a clinically suspicious abnormality. "Our facility is accredited by the [employer] Mammography Program."
== END | disposition home or self-care (01) ==
LOC: MAMMO 08:08
PROVIDERS: ATTEND Internal Medicine
DX: Z12.31 Encounter for screening mammogram for malignant neoplasm of breast (principal); N64.1 Fat necrosis of breast
CPT/HCPCS: 77063; 77067

== ENCOUNTER → 2020-12-04 | Outpatient (CLI) | payer MEDICARE, OTHER ==
[2018-04-30 12:01] VITALS: BP 108/62
--- NOTE | 2020-12-04 09:02 | KCIC ---
INDICATION: Screening for osteopenia/osteoporosis. Postmenopausal evaluation. COMPARISON: None. TECHNIQUE: Bone densitometry was performed through the lumbar spine and proximal femur. IMPRESSION: Lumbar Spine: BMD: 1.08 T-Score: 0.3 Range: Normal Proximal Femur: BMD: 1.0 T-Score: 0.7 Range: Normal World Health Organization Criteria for Bone Density: T-Score: > -1.0: Normal Range < -1.0 to -2.5: Osteopenic Range < -2.5: Osteoporotic Range Electronically signed by: Antoni Jones MD (12/04/2020 8:59 AM) [id number]
--- NOTE | 2020-12-04 16:53 | KCIC ---
BILATERAL SCREENING MAMMOGRAM, 3-D History: Routine screening. Comparison: Bilateral mammogram February 28, 2019 and prior years. Technique: MLO and CC digital tomosynthesis (3D) images obtained. Radiologist reviewed these images on dedicated workstation. Findings: Breast Tissue Density B : There are scattered areas of fibroglandular density. Glandular nodularity of the bilateral breasts is stable. Fat necrosis changes of the outer posterior left breast are stable. Mild arterial calcifications. There are no dominant masses, suspicious microc alcifications or architectural distortion. IMPRESSION: No mammographic evidence of malignancy. Recommend routine screening. BI-RADS category 2: Benign findings. The images were reviewed with computer-aided detection. Patient information is entered into reminder system with a target due date for the next screening [facility] mogram. Mammography is the most sensitive method for finding small breast cancers, but it does not detect the m all and is not a substitute for careful clinical examination. A negative mammogram does not negate a clinically suspicious finding and should not result in delay in biopsying a clinically suspicious a bnormality. "Our facility is accredited by the [employer] Mammography Program." Electronically signed by: Dc Lowery MD (12/04/2020 4:51 PM) [id number]
== END ==
LOC: KCIC MAMMO 07:54
PROVIDERS: ATTEND Internal Medicine
DX: Z12.31 Encounter for screening mammogram for malignant neoplasm of breast (principal); E28.39 Other primary ovarian failure
CPT/HCPCS: 77063; 77067; 77080

== ENCOUNTER → 2021-04-15 | Outpatient (CLI) | payer MEDICARE ==
[2018-04-30 12:01] VITALS: BP 108/62
--- NOTE | 2021-04-15 10:06 | KCIC ---
EXAM: Abdomen sonogram. HISTORY: Nonalcoholic fatty liver disease. TECHNIQUE: Sonographic imaging of the abdomen was performed. COMPARISON: 05/03/2018. FINDINGS: The liver is upper normal in size. There is hepatic steatosis. No focal hepatic lesion is s een. The common bile duct is normal in caliber. The gallbladder is unremarkable. The kidneys, pancrea s and spleen are unremarkable. The inferior vena cava is patent. The aorta is partially obscured due to bowel gas. IMPRESSION: 1. Hepatic steatosis. 2. No acute sonographic finding. Electronically signed by: Sharon Sun MD (04/15/2021 10:04 AM) [id number]
== END ==
LOC: KCIC US 09:03
PROVIDERS: ATTEND Internal Medicine
DX: K76.0 Fatty (change of) liver, not elsewhere classified (principal)
CPT/HCPCS: 76700